=== PATIENT | female | born 1995 | race Caucasian/White ===

== ENCOUNTER 2021-10-30 06:27 | Day surgery (SDC) | payer OTHER ==
[2021-10-26 10:30] VITALS: BMI 27.4
--- NOTE | 2021-10-27 15:58 | P.HPOB ---
History of Present Illness H&P Date: 10/27/21 Chief Complaint: Cervical dysplasia Lizet is a 18-year-old female with cervical dysplasia. Cervical dysplasia has been present since at least February 2021. She's been scheduled for multiple surgeries and has either no showed or cancel each one. She is scheduled again for LEEP colposcopy on November 272021. Risks/benefits/alternatives to this procedure were reviewed with the patient in detail and all questions were answered for her prior to proceeding to the operative room. Should, now that this surgery has been pushed out this far she ended up having cancer she may need to follow up with a [employer] oncologist moving forward. All other questions were answered for her at this time. She is scheduled again for a LEEP colposcopy. Past Medical History Past Medical History: Chest Pain / Angina Additional Past Medical History / Comment(s): childhood asthma. negative cardiac work up after chest pain complaints History of Any Multi-Drug Resistant Organisms: None Reported Past Surgical History: Section Additional Past Surgical History / Comment(s): c/s x5 Past Anesthesia/Blood Transfusion Reactions: No Reported Reaction, Motion Sickness Past Psychological History: Anxiety Smoking Status: Never smoker Past Alcohol Use History: Daily Additional Past Alcohol Use History / Comment(s): drinks 2-3 beers every other day Past Drug Use History: None Reported - Past Family History Mother Family Medical History: No Reported History Medications and Allergies Home Medications Medication Instructions Recorded Confirmed Type No Known Home Medications 10/26/21 10/26/21 History Allergies Allergy/AdvReac Type Severity Reaction Status Date / Time No Known Allergies Allergy Verified 10/26/21 10:20 Exam Osteopathic Statement: *. No significant issues noted on an osteopathic structural exam other than those noted in the History and Physical/Consult. - OBG Physical Exam Breast: both: normal (no masses) Abdomen: bowel sounds normal, no diffuse tenderness, no bruit present, no guarding noted, no hepatomegaly, no splenomegaly, no mass Vulva: both: normal Vagina: normal moisture, no discharge Cervix: no lesion, no discharge Uterus: normal size, normal contour Adnexa: both: normal Anus/Rectum: normal perianal skin, no rectal mass, no hemorrhoids, heme negative
[~2021-10-30 06:27] MED LIST: Pre Op ABX Message 1 EACH MISC MISCELLANE ONE
[2021-10-30] MEDS ORDERED: DEXAMETHASONE SOD PHOSPHATE 4 MG/ML 1 ML VIAL IV ONE (06:30)
[2021-10-30] MEDS ORDERED: ONDANSETRON 4 MG/2 ML VIAL IVP ONE (06:30)
[2021-10-30] MEDS ORDERED: SCOPOLAMINE 1.5MG/72HR PATCH TRANSDERM ONE (06:30)
[2021-10-30] MEDS ORDERED: LACTATED RINGERS 1,000 ML IV SCH (06:30)
[2021-10-30] MEDS ORDERED: LIDOCAINE 1% (10MG/ML) FOR IV START INTRADERMA PRN (06:30)
[2021-10-30] MEDS ORDERED: HYDROmorphone 0.5 MG/0.5 ML SYRINGE IVP PRN (06:30)
[2021-10-30 07:02] VITALS: RESP 16; TEMP 97.2
[2021-10-30] MEDS ORDERED: IODINE/POTASS IOD (LUGOLS) BOTTLE TOPICAL ONE ×2 (07:30→07:53)
[2021-10-30] MEDS ORDERED: MIDAZOLAM 2 MG/2 ML VIAL ONE (07:32)
[2021-10-30] MEDS ORDERED: fentaNYL (PF) 50 MCG/ML 2 ML AMP ONE (07:32)
[2021-10-30] MEDS ORDERED: LIDOCAINE 1% INJ 10MG/ML (20 ML MDV) ONE (07:32)
[2021-10-30] MEDS ORDERED: KETOROLAC 15 MG/ML 1 ML VIAL ONE (07:32)
[2021-10-30] MEDS ORDERED: SUCCINYLCHOLINE CHLORIDE 100 MG/5 ML SYR IV ONE (07:32)
[2021-10-30] MEDS ORDERED: PROPOFOL 10 MG/ML 20 ML VIAL IV ONE (07:32)
--- NOTE | 2021-10-30 08:21 | P.OP ---
Date of Procedure: 10/30/21 Preoperative Diagnosis: OLIVER-3 Postoperative Diagnosis: Same Procedure(s) Performed: LEEP colposcopy Anesthesia: [place] Surgeon: Thad Watson Estimated Blood Loss (ml): 12 IV fluids (ml): 400 Pathology: other (Ectocervix marked at 12:00 and endocervical portion) Condition: stable Disposition: same day Operative Findings: Pathology pending Description of Procedure: Patient was taken to the operating suite where a general anesthetic was found be adequate. She was prepped and draped in the normal sterile fashion and placed in dorsal lithotomy position. Initially Lugol solution was coated on the ectocervix and colposcope was used to guide procedure. Using a 2 cm loop and ectocervical portion was excised in 1 piece and marked 12:00. Endocervical portion was then obtained using a 1 cm loop. This tissue was collected and sent to pathology. Ball-tipped cautery was then used to obtain excellent hemostasis across the entire LEEP area with cauterization near the borders to obtain desiccation of any potential remaining dysplastic tissue. All instruments were then removed. Sponge, lap, needle counts were all correct 2. Patient was then taken to the recovery room in stable and satisfactory condition. Plan - Discharge Summary Discharge Rx Participant: No New Discharge Prescriptions: New Ibuprofen [Motrin] 600 mg PO Q6HR PRN #30 tab PRN Reason: Pain HYDROcodone/APAP 5-325MG [[place] 5-325] 1 tab PO Q4HR PRN #15 tab PRN Reason: Pain Discharge Medication List HYDROcodone/APAP 5-325MG [[place] 5-325] 1 tab PO Q4HR PRN #15 tab 10/30/21 [Rx] Ibuprofen [Motrin] 600 mg PO Q6HR PRN #30 tab 10/30/21 [Rx] Follow up Appointment(s)/Referral(s): Thad Watson DO [Doctor of Osteopathic Medicine] - 11/06/21 3:00 am Patient Instructions/Handouts: *Surgery [facility] - Scopalamine Patch Instructions Activity/Diet/Wound Care/Special Instructions: No heavy lifting, limit stairs and driving today, complete pelvic rest for a minimum of 2 weeks. No tub baths for 2 weeks but showering is okay. Call or report to the emergency room for any heavy bleeding, severe pain, temperatures above 100.4. Discharge Disposition: HOME SELF-CARE
[2021-10-30] MEDS ORDERED: LACTATED RINGERS 1,000 ML IV ONE (09:03)
[2021-10-30 09:32] VITALS: BP 114/79; PULSE 86
== END 2021-10-30 09:54 | disposition home or self-care (01) ==
LOC: OR 06:27
PROVIDERS: ATTEND Obstetrics & Gynecology
DX: N87.1 Moderate cervical dysplasia (principal); N87.9 Dysplasia of cervix uteri, unspecified; K21.9 Gastro-esophageal reflux disease without esophagitis; I20.9 Angina pectoris, unspecified; Z98.891 History of uterine scar from previous surgery; Z87.09 Personal history of other diseases of the respiratory system; F41.9 Anxiety disorder, unspecified
CPT/HCPCS: 57461; 81025; 88305; 88307; J2250; J1100; J2405; J2001; J3010; J1885; J0330; J2704